=== PATIENT | female | born 1985 | race Caucasian/White ===

== ENCOUNTER 2016-11-16 15:31 | Emergency (ER) | payer OTHER ==
[2016-11-16 15:46] VITALS: BP 111/68; PULSE 79; TEMP 98.3
--- NOTE | 2016-11-16 17:25 | PDOC ---
History of Present Illness - General Chief Complaint: Injury Stated Complaint: RT THUMB INJURY Time Seen by Provider: 11/16/16 16:39 History Source: Patient Exam Limitations: No Limitations - History of Present Illness Initial Comments: 11/16/16 19:34 31 yr female with c/o right thumb injury yesterday states she banged it on a wall and it bent backwards. pt took motrin [employer]. 11/16/16 19:34 Severity: reports: mild Pain Location: reports: upper extremity (right thumb) Past History - Past Medical History Allergies/Adverse Reactions: Allergies Allergy/AdvReac Type Severity Reaction Status Date / Time No Known Allergies Allergy Verified 11/16/16 15:43 Home Medications: Ambulatory Orders NK [No Known Home Medication] 11/16/16 Other medical history: DENIES. - Psycho/Social/Smoking Cessation Hx Suicidal Ideation: No Smoking History: Never smoked Trauma Specific PMHX - Complaint Specific PMHX Arthritis: No Back Injury: No Neck Injury: No Hx Sacro Iliac Joint Dysfunction: No Review of Systems - Review of Systems Able to Perform ROS?: Yes Is the patient limited [place] proficient: No Constitutional: No: Symptoms Reported HEENTM: No: Symptoms Reported Respiratory: No: Symptoms reported Cardiac (ROS): No: Symptoms Reported ABD/GI: No: Symptoms Reported : No: Symptoms Reported Musculoskeletal: Yes: See HPI Integumentary: No: Symptoms Reported *Physical Exam - Vital Signs Last Vital Signs Temp Pulse Resp BP Pulse Ox 98.3 F 79 19 111/68 99 11/16/16 15:43 11/16/16 15:43 11/16/16 15:43 11/16/16 15:43 11/16/16 15:43 - Physical Exam General Appearance: Yes: Nourished, Appropriately Dressed HEENT: positive: EOMI, LITO, Normal ENT Inspection, TMs Normal, Pharynx Normal Neck: positive: Supple Respiratory/Chest: positive: Lungs Clear, Normal Breath Sounds Cardiovascular: positive: Regular Rhythm, Regular Rate Extremity: positive: Normal Capillary Refill, Normal Inspection, Normal Range of Motion, Tender (right thumb base of thumb , nv intact FROM ) Integumentary: positive: Normal Color, Dry, Warm Neurologic: positive: manager sign II-XII NML intact, Fully Oriented, Alert, Normal Mood/ Affect, Normal Response, Motor Strength 5/5 Procedures - Splinting Pre-Made Type: metal (thumb splint) ED Treatment Course - RADIOLOGY Radiology Studies Ordered: Category Date Time Status FINGER(S) RIGHT [RAD] Stat Radiology 11/16/16 16:41 Completed Medical Decision Making - Medical Decision Making 11/16/16 19:33 cc: right thumb injury yesterday xray done (pt took motrin [employer]) pt has FROM nv intact will place thumb splint 11/16/16 19:37 *DC/Admit/Observation/Transfer Diagnosis at time of Disposition: Sprain, thumb Qualifiers: Encounter type: initial encounter Sprain of finger site: unspecified site Laterality: right Qualified Code(s): S63.601A - Unspecified sprain of right thumb, initial encounter - Discharge Dispostion Disposition: HOME Condition at time of disposition: Good - Referrals Referrals: Galindo Lynch MD [Staff Physician] - - Patient Instructions Additional Instructions: follow with the orthopedist if any worsening symptoms use the thumb splint at all times except to bathe take motrin as directed for pain
== END 2016-11-16 17:28 | disposition home or self-care (01) ==
LOC: JERFT 15:31
PROC: 2W3JX1Z Immobilization of Right Finger using Splint (ICD-10-PCS; principal; 2016-11-16)
DX: S63.601A Unspecified sprain of right thumb, initial encounter (principal); W22.8XXA Striking against or struck by other objects, initial encounter; Y93.89 Activity, other specified; Y92.89 Other specified places as the place of occurrence of the external cause; Y99.8 Other external cause status
CPT/HCPCS: 73140-TC-RT; 99281-25